=== PATIENT | male | born 1990 | race African-American/Black ===

== ENCOUNTER 2017-01-22 21:31 | Emergency (ER) | payer SELFPAY ==
[~2017-01-22] VITALS: Ht 177.8 cm; Wt 91.0 kg
[2017-01-22 23:18] VITALS: BP 133/84
== END 2017-01-23 01:30 | disposition left against medical advice (07) ==
LOC: ER 21:31
DX: Z53.21 Procedure and treatment not carried out due to patient leaving prior to being seen by health care provider (principal)

== ENCOUNTER 2017-01-23 08:13 | Emergency (ER) | payer SELFPAY ==
[~2017-01-23] VITALS: Ht 180.3 cm; Wt 87.0 kg
[2017-01-23 09:13] LABS: BASOPHILS % 0.2 % (0.0-2.0); EOSINOPHILS % 0.2 % (0.0-5.0); HEMATOCRIT. 45.3 % (42.0-52.0); HEMOGLOBIN. 15.7 g/dL (14.0-18.0); LYMPHOCYTES % 8.4 % (20.0-50.0); MEAN CORPUSCULAR HEMOGLOBIN 27.8 pg (28.0-32.0); MEAN CORPUSCULAR VOLUME 80.5 fL (80.0-94.0); NEUTROPHILS % 80.2 % (40.0-76.0); PLATELET 183 x1000/uL (130-400); RED BLOOD CELL COUNT 5.63 mill/uL (4.7-6.1); RED CELL DISTRIBUTION WIDTH 13.9 % (11.6-14.6)
[2017-01-23 09:23] LABS: CARBON DIOXIDE 29 mEq/L (21-32); CHLORIDE 104 mEq/L (98-107)
[2017-01-23 09:39] LABS: MONOTEST NEGATIVE (NEGATIVE)
[2017-01-23] MEDS ORDERED: KETOROLAC 30MG/ML VIAL IV ONE (10:30)
[2017-01-23] MEDS ORDERED: CLINDAMYCIN 600 MG in DEXTROSE 5% WATER 50 ML IV ONE (11:45)
[2017-01-23] MEDS ORDERED: KETOROLAC 15MG/ML VIAL IV ONE (15:45)
[2017-01-23] MEDS ORDERED: DEXAMETHASONE 10MG/ML 1ML VIAL IV ONE (16:30)
[2017-01-23 19:46] VITALS: BP 142/91
== END 2017-01-23 20:15 | disposition short-term general hospital (02) ==
LOC: ER 09:01
DX: J36 Peritonsillar abscess (principal); F17.200 Nicotine dependence, unspecified, uncomplicated; F12.90 Cannabis use, unspecified, uncomplicated
CPT/HCPCS: 36415; 80048; 82962; 85025; 86308; 87430; 96365; 96375; 96376; 99284; J1100; J1885; J3490; Z7610; J7060